=== PATIENT | female | born 1950 | race Caucasian/White ===

== ENCOUNTER 2016-04-23 10:30 | Outpatient (RCR) | payer OTHER, MEDICAID ==
[~2016-04-23 10:30] MED LIST: CANA100T PO; FENTANYL 50MCG TD; JANUVIA 100MG100 MG PO; LANTUS SOLOS100 U/ML SQ; LYRICA 75MG CAP75 MG PO; NORVASC 10MG10 MG PO; PERCOCET 325 MG1 TA3 PO; PRINIVIL40 MG PO
== END 2016-05-08 14:25 | disposition home or self-care (01) ==
LOC: WSC 10:30
DX: M54.5 Low back pain (principal)
CPT/HCPCS: G8978-GP; G8979-GP; G8980-GP

== ENCOUNTER 2017-04-02 10:30 | Outpatient (RCR) | payer OTHER, MEDICAID | END 2017-05-06 | LOC: WSPT | DX: M54.5 Low back pain (principal); M54.10 Radiculopathy, site unspecified ==

== ENCOUNTER → 2018-08-18 | Outpatient (CLI) | payer MEDICARE, MEDICAID | LOC: COL.RAD 07:14 | DX: K76.0 Fatty (change of) liver, not elsewhere classified (principal) ==